=== PATIENT | female | born 1965 | race Hispanic/Latino ===

== ENCOUNTER 2018-02-22 02:00 | Emergency (ER) | payer OTHER ==
[2018-02-22 03:27] LABS: Basophils # (Auto) 0.1 K/mm3 (0.0-0.1); Basophils % (Auto) 1.5 % (0.0-1.8); Eosinophils # (Auto) 0.1 K/mm3 (0.0-0.4); Eosinophils % (Auto) 1.3 % (0.0-4.3); Hematocrit 42.9 % (30.3-42.9); Hemoglobin 14.9 gm/dl (10.1-14.3); Lymphocytes # (Auto) 1.4 K/mm3 (1.2-5.4); Lymphocytes % (Auto) 32.5 % (13.4-35.0); Mean Corpuscular HGB Conc 35 % (30-34); Mean Corpuscular Hemoglobin 34 pg (28-32); Mean Corpuscular Volume 99 fl (79-97); Monocytes # (Auto) 0.6 K/mm3 (0.0-0.8); Monocytes % (Auto) 14.9 % (0.0-7.3); Platelet Count 151 K/mm3 (140-440); Red Blood Count 4.33 M/mm3 (3.65-5.03); Red Cell Distribution Width 14.2 % (13.2-15.2)
[2018-02-22 03:39] LABS: INR 0.78 (0.87-1.13); Partial Thromboplastin Time 24.3 Sec. (24.2-36.6)
[2018-02-22 03:47] LABS: Alanine Aminotransferase 24 units/L (7-56); BUN/Creatinine Ratio 10; Blood Urea Nitrogen 3 mg/dL (7-17); Calcium 9.3 mg/dL (8.4-10.2); Hemolysis Index 6; Lipase 53 units/L (13-60)
[2018-02-22 05:59] VITALS: BP 128/82
--- NOTE | 2018-02-22 06:39 | Emergency Department Report ---
ED GI Bleed HPI - General Chief complaint: GI Bleed Stated complaint: RIGHT EYE PAIN,BLACK STOOL Time Seen by Provider: 02/22/18 06:03 Source: patient Mode of arrival: Ambulatory Limitations: No Limitations - History of Present Illness Initial comments: Ms. Najera is a very pleasant 52-year-old female with history of anemia. She's had fatigue and dark stools black stools for last 3 days. She takes omeprazole. She has been taking Pepto-Bismol for loose stools. She denies any pain at this time. Denies any fever. She took approximately half a bottle Pepto-Bismol 2-3 days ago. She also takes Prozac since the of her several years ago. No gross blood. No vomiting. She also takes ibuprofen several times a week for back pain. Her boyfriend is here bedside. She works as an real estate accountant. She does have a high stress job. She also has redness at the temporal region of her right eye. No pain. No vision loss. No visual disturbance. She drinks 8 beers a day. She smokes tobacco. She has been menopausal for the last 2 years. MD complaint: other (Black stool) Severity scale (0 -10): 0 - Related Data Previous Rx's Medication Instructions Recorded Last Taken Type Cephalexin [Keflex] 1,000 mg PO Q12HR #28 cap 05/27/16 Unknown Rx predniSONE [Deltasone] 20 mg PO QDAY #14 tab 05/27/16 Unknown Rx Allergies Allergy/AdvReac Type Severity Reaction Status Date / Time codeine Allergy Hives Verified 02/22/18 02:41 ED Review of Systems ROS: Stated complaint: RIGHT EYE PAIN,BLACK STOOL Other details as noted in HPI Comment: All other systems reviewed and negative Constitutional: denies: fever, malaise Respiratory: denies: cough Cardiovascular: denies: chest pain ED Past Medical Hx - Past Medical History Previous Medical History?: No - Surgical History Past Surgical History?: No - Social History Smoking Status: Current Every Day Smoker Substance Use Type: Alcohol (8 beers a day) Other Social History: Patient is a . She works as an real estate accountant. Her daughter is a registered nurse. - Medications Home Medications: Home Medications Medication Instructions Recorded Confirmed Last Taken Type Cephalexin [Keflex] 1,000 mg PO Q12HR #28 cap 05/27/16 Unknown Rx predniSONE [Deltasone] 20 mg PO QDAY #14 tab 05/27/16 Unknown Rx ED Physical Exam - General Limitations: No Limitations General appearance: alert, in no apparent distress - Head Head exam: Present: atraumatic, normocephalic - Eye Eye exam: Present: PERRL, EOMI, conjunctival injection (small conjunctival hemorrhage of the temporal region of the right eye). Absent: scleral icterus - ENT ENT exam: Present: mucous membranes moist - Neck Neck exam: Present: normal inspection. Absent: tenderness, meningismus - Respiratory Respiratory exam: Present: normal lung sounds bilaterally. Absent: respiratory distress, wheezes, rales, rhonchi - Cardiovascular Cardiovascular Exam: Present: regular rate, normal rhythm, normal heart sounds. Absent: bradycardia, tachycardia, systolic murmur, diastolic murmur, rubs, gallop - GI/Abdominal GI/Abdominal exam: Present: soft, normal bowel sounds. Absent: distended, tenderness, guarding, rebound - Extremities Exam Extremities exam: Present: normal inspection - Back Exam Back exam: Present: normal inspection - Neurological Exam Neurological exam: Present: alert, oriented X3 - Psychiatric Psychiatric exam: Present: normal affect, normal mood - Skin Skin exam: Present: warm, dry, intact, normal color. Absent: rash ED Course Vital Signs 02/22/18 02/22/18 02/22/18 02:09 02:41 05:57 Temperature 98.5 F 98.3 F 98.4 F Pulse Rate 74 79 95 H Respiratory 18 18 16 Rate Blood Pressure 186/98 186/98 Blood Pressure 128/82 [Right] O2 Sat by Pulse 98 98 96 Oximetry ED Medical Decision Making - Lab Data Result diagrams: 02/22/18 03:04 02/22/18 03:04 - EKG Data -: EKG Interpreted by Me EKG shows normal: sinus rhythm, axis, intervals, QRS complexes Rate: normal - EKG Data 02/22/18 06:39 EKG obtained at 253 Normal sinus rhythm rate of 60 bpm nl axis normal intervals T wave inversions in V1 and V2 no ST elevation - Medical Decision Making Ms. Najera is a 52-year-old female who presents with fatigue and 3 days of black stool. She also has spontaneous conjunctival hemorrhage which occurred this morning. On exam she has brown guaiac negative Hemoccult negative stools. I suspect the Pepto-Bismol caused the dark stools. Patient has normal hemoglobin and platelets. she also has hyponatremia which is indicative of beer potomania. I did outreach counselor her regarding the heavy alcohol use. I have asked her to cut back at least 4 beers a day to 8 beers a day. No evidence of GI bleed. No evidence of significant anemia. She did have severely elevated blood pressure. She explained that her PCP is aware of this. She will have her BP checked by her primary physician Dr. Bonita Dwyer [facility]. Discharged home in stable condition Critical care attestation.: If time is entered above; I have spent that time in minutes in the direct care of this critically ill patient, excluding procedure time. ED Disposition Clinical Impression: Hyponatremia, Dark stools, Elevated blood pressure reading, Conjunctival hemorrhage of right eye Disposition: DC- TO HOME OR SELFCARE Is pt being admited?: No Does the pt Need Aspirin: No Condition: Stable Instructions: Subconjunctival Hemorrhage (ED), Hyponatremia (ED) Referrals: LINCOLN MAHMOOD PA [Primary Care Provider] - 3-5 Days Time of Disposition: 06:44
== END 2018-02-22 06:54 | disposition home or self-care (01) ==
LOC: ED 02:00
DX: H11.31 Conjunctival hemorrhage, right eye (principal); E87.1 Hypo-osmolality and hyponatremia; R03.0 Elevated blood-pressure reading, without diagnosis of hypertension; R19.5 Other fecal abnormalities; F17.200 Nicotine dependence, unspecified, uncomplicated; Z88.6 Allergy status to analgesic agent
CPT/HCPCS: 36415; 80053; 83690; 85025; 85610; 85730; 86850; 86900; 86901; 93005; 93010; 99284